=== PATIENT | female | born 1975 | race African-American/Black ===

== ENCOUNTER 2019-09-30 18:55 | Emergency (ER) | payer OTHER ==
[2019-09-30 19:13] VITALS: TEMP 98.7; BMI 34.4
--- NOTE | 2019-09-30 19:51 | PDOC ---
History of Present Illness - General Chief Complaint: Chest Pain Stated Complaint: CHEST PAIN Time Seen by Provider: 09/30/19 19:37 Past History - Medical History Allergies/Adverse Reactions: Allergies Allergy/AdvReac Type Severity Reaction Status Date / Time No Known Allergies Allergy Verified 09/30/19 19:12 COPD: No - Surgical History Appendectomy: Yes - Reproductive History Is Patient Now?: No - Psycho-Social/Smoking History Smoking History: Never smoked - Substance Abuse Hx (Audit-C & DAST Scrn) How often the patient has a drink containing alcohol: Never Score: In Men: 4 or > Positive; In Women: 3 or > Positive: 0 Screen Result (Pos requires Nsg. Audit-10AR): Negative *Physical Exam - Vital Signs Last Vital Signs Temp Pulse Resp BP Pulse Ox 98.7 F 62 20 113/58 L 98 09/30/19 19:08 09/30/19 19:08 09/30/19 19:08 09/30/19 19:08 09/30/19 19:08 Heart Score/ECG Review - History History: Slightly suspicious - Electrocardiogram EKG: Normal - Age Age: </= 45 - Risk Factors Risk Factors Heart Score: Yes Hx Obesity Based on the list above the patient has:: 1-2 risk factors - Troponin Troponin: </= normal limit - Score Heart Score - Total: 1 ED Treatment Course - LABORATORY CBC & Chemistry Diagram: 09/30/19 20:23 09/30/19 20:23 Medical Decision Making - Medical Decision Making 09/30/19 20:45 HPI: 43yo F hx stress, anxiety, and obesity presents from home c/o 3 weeks intermittent L-sided under breast nonradiating chest pains no triggers nonexertional 1-10x per day last 1-20 min resolve on own no pain meds tried intermittently associated with lightheadedness only. Hx similar sx years ago due to stress and anxiety. Endorses increased stress recently. COVID + in April. Last pain 1hr prior to arrival, asymptomatic now. Denies F/C, diaphoresis, cough, SOB, URI-like sx, palpitations, N/V, syncope, hx DVT/PE, OCP or estrogen use, calf pain or swelling, travel, sick contacts. ROS: Constitutional: Negative for chills, fever, fatigue, diaphoresis. HENT: Negative for sore throat, rhinorrhea, congestion. Eyes: Negative for visual disturbance. Respiratory: Negative for shortness of breath, cough, and wheezing. Cardiovascular: Positive for chest pain. Negative for palpitations, and leg swelling. Gastrointestinal: Negative for abdominal pain, blood in stool, constipation, diarrhea, nausea, and vomiting. Genitourinary: Negative for dysuria, flank pain, and hematuria. Musculoskeletal: Negative for myalgias, back pain, and neck pain. Skin: Negative for rash. Neurological: Positive for light-headedness. Negative for vertigo, syncope, weakness, numbness and headaches. Psychiatric/Behavioral: Positive for anxiety. Negative for confusion. PE: Gen: Alert, NAD, comfortable-appearing. HEENT: PERRL, EOMI, MMM, NCAT. No conjunctival pallor. Sclera are non-icteric. CV: Regular rate and rhythm. No murmurs, rubs, or gallops. PULM: No resp distress. CTAB, no wheezes, rales, or rhonchi. ABD: soft, NT/ND, no rebound tenderness or guarding, no CVA tenderness. BACK: No TTP of c/t/l-spine. No step-offs or deformities. MSK: No bony deformities. 2+ pulses in all extremities. NEURO: AAOx3. PERRL. No gross CN deficits. Strength and sensation grossly intact throughout. EXTREMITIES: No cyanosis. No clubbing. No edema. No calf tenderness. PSYCH: Normal mood and thought pattern. SKIN: Warm and dry. Normal capillary refill. No rashes. No jaundice. MDM: 43yo F hx stress, anxiety, and obesity presents from home c/o 3 weeks intermittent L-sided under breast nonradiating chest pains no triggers nonexertional 1-10x per day last 1-20 min resolve on own no pain meds tried intermittently associated with lightheadedness only. Hemodynamically stable, afebrile, benign exam. Ddx: presentation most c/w anxiety. Low concern for emergent pulmonary or cardiac pathology due to nonexertional nature, timing, and benign exam, obtain labs/CXR/EKG to r/o ACS/ND (HEART score 1), arrhythmia, PNA, COPD, PTX. Also consider , metabolic derangement, anemia. -CBC,CMP,Cardiac profile,UPreg -CXR -EKG -Dispo: pending w/u and reassessment, likely d/c home 09/30/19 20:52 EKG reviewed: normal sinus rhythm, 63bpm, normal axis, normal intervals, no e/o acute ischemia 09/30/19 21:56 Labs reviewed. No concerning findings. CXR reviewed: No acute pathology 09/30/19 23:38 2nd trop negative Pt asymptomatic since arrival. Very low concern for emergent pathology. Most likely anxiety. Will discharge home with cardiology f/u. Return precautions given. Pt understands all discharge instructions and all questions were answered. Discharge - Discharge Information Problems reviewed: Yes Clinical Impression/Diagnosis: Chest pain Qualifiers: Chest pain type: unspecified Qualified Code(s): R07.9 - Chest pain, unspecified Condition: Stable Disposition: HOME - Admission No - Follow up/Referral Referrals: Kenroy Holley MD [Staff Physician] - Sam Fairbanks MD [Staff Physician] - Lev Payne MD [Staff Physician] - Emilio Camarillo MD [Staff Physician] - Kishan Zamora MD [Staff Physician] - - Patient Discharge Instructions Patient Printed Discharge Instructions: DI for Atypical Chest Pain, DI for Anxiety -- Adult Additional Instructions: You have been seen in the Emergency Department for your chest pain. Your EKG, chest X-ray, and labs, including Troponin (a heart enzyme), show no signs concerning for an emergent condition such as a heart attack or pneumonia. Your symptoms are most likely due to stress and anxiety, but we have given you referrals to multiple cardiologists (heart doctors) for further evaluation. Call one of their offices to make a follow-up appointment. Follow-up with your primary care doctor within 1 week. Return to the Emergency Department immediately if you experience chest pain, difficulty breathing, passing out, or any other new or worsening symptom. - Post Discharge Activity
[2019-09-30 20:38] LABS: EOS % 1.5 % (0-4.5); HEMATOCRIT 34.6 % (32.4-45.2); HEMOGLOBIN 11.7 GM/dL (10.7-15.3); LYMPH % 23.8 % (8-40); MCH 29.1 pg (25.7-33.7); MCHC 33.7 g/dl (32.0-36.0); MEAN CELL VOLUME 86.3 fl (80-96); MEAN PLT VOLUME 8.9 fl (7.5-11.1); NEUT % 69.7 % (42.8-82.8); PLATELET COUNT 355 K/MM3 (134-434); RBC 4.01 M/mm3 (3.60-5.2); RDW 14.4 % (11.6-15.6); WHITE BLOOD COUNT 10.3 K/mm3 (4.0-10.0)
[2019-09-30 21:03] LABS: ALBUMIN 3.6 g/dl (3.4-5.0); ALK PHOS 83 U/L (45-117); ANION GAP 6 MMOL/L (8-16); BILIRUBIN,TOTAL 0.4 mg/dL (0.2-1); CALCIUM 9.4 mg/dL (8.5-10.1); CHLORIDE 107 mmol/L (98-107); CO2 26 mmol/L (21-32); CREATININE 0.7 mg/dL (0.55-1.3); GLUCOSE,RANDOM 95 mg/dL (74-106); LIPASE 62 U/L (73-393); POTASSIUM 3.6 mmol/L (3.5-5.1); SGOT/AST 18 U/L (15-37); SGPT/ALT 28 U/L (13-61); SODIUM 139 mmol/L (136-145); TOT PROT 7.2 g/dl (6.4-8.2)
--- NOTE | 2019-09-30 21:49 | PDOC ---
Documentation entered by Zara Alvarez SCRIBE, acting as scribe for Juan Hurst MD. Juan Hurst MD: This documentation has been prepared by the scribeAntonio Sydney, SCRIBE, under my direction and personally reviewed by me in its entirety. I confirm that the documentation accurately reflects all work, treatment, procedures, and medical decision making performed by me. Attending Attestation - Resident Resident Name: KeatonCarlene - ED Attending Attestation I have performed the following: I have examined & evaluated the patient, The case was reviewed & discussed with the resident, I agree w/resident's findings & plan, Exceptions are as noted - HPI HPI: 09/30/19 21:24 Patient is a 43 year old female with no significant past medical history who presents to the ED with three weeks of intermittent chest pain. As per patient, her sharp pain is localized in LUQ and lasts for a few minutes at a time. Patient endorses her pain returned this afternoon at her granddaughters birthday green party, where she also felt lightheaded, prompting her arrival to the ED. Patient reports her last episode of pain occurred an hour and a half prior to her arrival. Patient states she has been under stress secondary to her job and family issues, and notes she has been hospitalized for similar symptoms due to stress in the past. Denies headache, fever, chills, shortness of breath, bowers, nausea, vomiting, diarrhea, or urinary changes. Allergies: NKDA Family Hx: Mother had first MS at age 36, and another one 4 years ago - Physicial Exam PE: 09/30/19 21:16 GENERAL: The patient is awake, alert, and fully oriented, Nontoxic - in no acute distress. HEAD: Normocephalic, atraumatic. EYES: extraocular movements intact, sclera anicteric, conjunctiva clear. ENT: Normal voice, Moist mucous membranes. NECK: Normal range of motion, supple LUNGS: Breath sounds equal, clear to auscultation bilaterally. No wheezes, no rhonchi, no rales. HEART: Regular rate and rhythm, normal S1 and S2 without murmur, rub or gallop. ABDOMEN: Soft, nontender, No guarding, no rebound. No CVA tenderness EXTREMITIES: Normal range of motion, no edema. NEUROLOGICAL: No facial assymetry, Normal speech, PSYCH: Normal mood, normal affect. SKIN: Warm, Dry, normal turgor, - Medical Decision Making 09/30/19 21:16 43y F presenting with intermitent episodes of chest pain that is sharp in nature, in the left chest, non radiating without associated sob, bowers, diaphoresis, usually stops spontanoeusly, and are non exertional. Pt had a stress test approx 18 months ago in [place]. conider possible acs, on rashs Pt currently pain free. will obtain trops x 2, ekg, cxr will refer to cardiology if workup negative 09/30/19 23:59 trops neg x 2 will dc pt with cardiology fu pt feeling better return precautions wre discussed I discussed the physical exam findings, ancillary test results and final diagnoses with the patient. I answered all of the patient's questions. The patient was satisfied with the care received and felt comfortable with the discharge plan and treatment plan. The patient will call their primary care physician within 24 hours to arrange follow-up and will return to the Emergency Department with any new, persistent or worsening symptoms. Heart Score/ECG Review - ECG Impressions Comment:: 09/30/19 21:24 Twelve-lead EKG was performed and reviewed by me. There is normal sinus rhythm with a normal rate. ate of 63 The axis is normal. The intervals are normal. There is normal R wave progression There are no ST or T wave abnormalities. Impression: Normal twelve-lead EKG Discharge - Discharge Information Problems reviewed: Yes Clinical Impression/Diagnosis: Chest pain Qualifiers: Chest pain type: unspecified Qualified Code(s): R07.9 - Chest pain, unspecified Condition: Stable Disposition: HOME - Admission No - Follow up/Referral Referrals: Kenroy Holley MD [Staff Physician] - Sam Fairbanks MD [Staff Physician] - Lev Payne MD [Staff Physician] - Emilio Camarillo MD [Staff Physician] - Kishan Zamora MD [Staff Physician] - - Patient Discharge Instructions Patient Printed Discharge Instructions: DI for Atypical Chest Pain, DI for Anxiety -- Adult Additional Instructions: You have been seen in the Emergency Department for your chest pain. Your EKG, chest X-ray, and labs, including Troponin (a heart enzyme), show no signs concerning for an emergent condition such as a heart attack or pneumonia. Your symptoms are most likely due to stress and anxiety, but we have given you referrals to multiple cardiologists (heart doctors) for further evaluation. Call one of their offices to make a follow-up appointment. Follow-up with your primary care doctor within 1 week. Return to the Emergency Department immediately if you experience chest pain, difficulty breathing, passing out, or any other new or worsening symptom. - Post Discharge Activity
[2019-09-30 22:57] VITALS: BP 111/67; PULSE 58
--- NOTE | 2019-10-01 08:53 | EKG ---
Test Reason : Blood Pressure : / mmHG Vent. Rate : 063 BPM Atrial Rate : 063 BPM P-R Int : 178 ms QRS Dur : 086 ms QT Int : 402 ms P-R-T Axes : 027 019 012 degrees QTc Int : 411 ms NORMAL SINUS RHYTHM NORMAL ECG NO PREVIOUS ECGS AVAILABLE Confirmed by Elaine Thompson ([id number]) on 10/01/2019 8:53:38 AM Referred By: Confirmed By:Elaine Thompson
== END 2019-09-30 23:49 | disposition home or self-care (01) ==
LOC: JER 18:55
DX: R07.9 Chest pain, unspecified (principal); F41.9 Anxiety disorder, unspecified
CPT/HCPCS: 36415; 71046-TC-FY; 80053; 82550; 83690; 84484; 84703; 85025; 85730; 93005; 93010; 99284-25

== ENCOUNTER 2020-11-12 18:30 | Observation (INO) | payer OTHER ==
[2020-11-12] MEDS ORDERED: ASPIRIN 81 MG CHEWABLE TABLETS PO ONE (19:49)
[2020-11-12 20:40] LABS: BASO % 0.9 % (0-2.0); EOS % 3.9 % (0-4.5); HEMOGLOBIN 12.2 GM/dL (10.7-15.3); LYMPH % 42.2 % (8-40); MCH 28.7 pg (25.7-33.7); MEAN CELL VOLUME 84.4 fl (80-96); MEAN PLT VOLUME 8.1 fl (7.5-11.1); MONO % 4.4 % (3.8-10.2); NEUT % 48.6 % (42.8-82.8); PLATELET COUNT 405 10^3/uL (134-434); RBC 4.26 M/mm3 (3.60-5.2); RDW 14.6 % (11.6-15.6)
[2020-11-12 20:52] LABS: INR 1.07 (0.83-1.09); PROTHROMBIN TIME (PATIENT) 13.2 SEC (9.7-13.0)
[2020-11-12 20:54] LABS: ACTIVATED PTT 37.5 SECONDS (25.2-36.5)
[2020-11-12 20:59] LABS: CHLORIDE 108 mmol/L (98-107); SODIUM 140 mmol/L (136-145)
[2020-11-12 21:01] LABS: ALBUMIN 3.7 g/dl (3.4-5.0); ANION GAP 7 MMOL/L (8-16); BLOOD UREA NITROGEN 9.7 mg/dL (7-18); CALCIUM 9.3 mg/dL (8.5-10.1); CO2 25 mmol/L (21-32); MAGNESIUM 2.3 mg/dL (1.8-2.4)
[2020-11-12 21:02] LABS: GLUCOSE,RANDOM 90 mg/dL (74-106)
[2020-11-12 21:04] LABS: SGPT/ALT 19 U/L (13-61)
[2020-11-12 21:05] LABS: CREATININE 0.7 mg/dL (0.55-1.3); SGOT/AST 12 U/L (15-37)
[2020-11-12 21:06] LABS: BILIRUBIN,TOTAL 0.3 mg/dL (0.2-1); TOT PROT 7.4 g/dl (6.4-8.2)
[2020-11-12 21:07] LABS: ALK PHOS 122 U/L (45-117)
[2020-11-12] MEDS ORDERED: MECLIZINE HCL 25 MG TABLET (FP) PO ONE (22:59)
[2020-11-12] MEDS ORDERED: MECLIZINE HCL 25 MG TABLET (FP) ONE (23:32)
[2020-11-13] MEDS ORDERED: ALBUTEROL SO4 HFA INHALER IH PRN (03:59)
[2020-11-13 06:16] LABS: HEMATOCRIT 34.6 % (32.4-45.2); HEMOGLOBIN 11.6 GM/dL (10.7-15.3); MCH 28.7 pg (25.7-33.7); MCHC 33.7 g/dl (32.0-36.0); MEAN CELL VOLUME 85.2 fl (80-96); MEAN PLT VOLUME 8.4 fl (7.5-11.1); PLATELET COUNT 371 10^3/uL (134-434); RBC 4.06 M/mm3 (3.60-5.2); RDW 14.4 % (11.6-15.6); WHITE BLOOD COUNT 7.6 K/mm3 (4.0-10.0)
[2020-11-13 06:38] LABS: BLOOD UREA NITROGEN 9.7 mg/dL (7-18); CALCIUM 9.2 mg/dL (8.5-10.1)
[2020-11-13 06:42] LABS: CREATININE 0.7 mg/dL (0.55-1.3)
[2020-11-13] MEDS ORDERED: LACTATED RINGERS SOLUTION 1,000 ML/1,000 ML INFUS.BAG IV SCH (10:30)
[2020-11-13 21:06] VITALS: BMI 33.0
[2020-11-14 07:28] LABS: BASO % 0.8 % (0-2.0); EOS % 4.2 % (0-4.5); HEMATOCRIT 34.8 % (32.4-45.2); HEMOGLOBIN 11.6 GM/dL (10.7-15.3); LYMPH % 36.6 % (8-40); MCH 28.1 pg (25.7-33.7); MCHC 33.4 g/dl (32.0-36.0); MEAN CELL VOLUME 84.4 fl (80-96); MEAN PLT VOLUME 8.5 fl (7.5-11.1); MONO % 6.1 % (3.8-10.2); NEUT % 52.3 % (42.8-82.8); PLATELET COUNT 357 10^3/uL (134-434); RBC 4.13 M/mm3 (3.60-5.2); RDW 14.3 % (11.6-15.6); WHITE BLOOD COUNT 6.1 K/mm3 (4.0-10.0)
[2020-11-14 07:56] LABS: ALBUMIN 3.1 g/dl (3.4-5.0); BLOOD UREA NITROGEN 14.1 mg/dL (7-18)
[2020-11-14 07:57] LABS: MAGNESIUM 2.1 mg/dL (1.8-2.4)
[2020-11-14 07:59] LABS: PHOSPHOROUS 3.4 mg/dL (2.5-4.9)
[2020-11-14 08:00] LABS: BILIRUBIN,TOTAL 0.3 mg/dL (0.2-1); TOT PROT 6.5 g/dl (6.4-8.2)
[2020-11-14] MEDS: MIDODRINE HCL 5 MG TABLET PO SCH ×2 (09:44→17:46)
[2020-11-14] MEDS: LACTATED RINGERS SOLUTION 1,000 ML/1,000 ML INFUS.BAG IV SCH ×2 (22:13→22:17)
[2020-11-15] MEDS: LACTATED RINGERS SOLUTION 1,000 ML/1,000 ML INFUS.BAG IV SCH (06:38)
[2020-11-15 08:04] LABS: BASO % 1.1 % (0-2.0); HEMATOCRIT 33.7 % (32.4-45.2); HEMOGLOBIN 11.4 GM/dL (10.7-15.3); LYMPH % 39.2 % (8-40); MCH 28.8 pg (25.7-33.7); MCHC 33.8 g/dl (32.0-36.0); MEAN CELL VOLUME 85.1 fl (80-96); MEAN PLT VOLUME 8.8 fl (7.5-11.1); MONO % 6.2 % (3.8-10.2); NEUT % 49.5 % (42.8-82.8); PLATELET COUNT 330 10^3/uL (134-434); RBC 3.95 M/mm3 (3.60-5.2); RDW 14.3 % (11.6-15.6); WHITE BLOOD COUNT 5.2 K/mm3 (4.0-10.0)
[2020-11-15] MEDS ORDERED: MECLIZINE HCL 25 MG TABLET (FP) PO ONE (08:08)
[2020-11-15 08:17] LABS: CALCIUM 8.8 mg/dL (8.5-10.1)
[2020-11-15 08:18] LABS: ALBUMIN 2.9 g/dl (3.4-5.0); BLOOD UREA NITROGEN 9.4 mg/dL (7-18)
[2020-11-15 08:21] LABS: CREATININE 0.6 mg/dL (0.55-1.3); PHOSPHOROUS 3.4 mg/dL (2.5-4.9)
[2020-11-15 08:22] LABS: BILIRUBIN,TOTAL 0.5 mg/dL (0.2-1); TOT PROT 6.2 g/dl (6.4-8.2)
[2020-11-15] MEDS: MIDODRINE HCL 5 MG TABLET PO SCH ×2 (09:21→18:38)
[2020-11-15] MEDS: MECLIZINE HCL 25 MG TABLET (FP) PO SCH (21:51)
[2020-11-16 07:38] LABS: BASO % 0.8 % (0-2.0); EOS % 4.2 % (0-4.5); HEMATOCRIT 35.4 % (32.4-45.2); HEMOGLOBIN 11.9 GM/dL (10.7-15.3); LYMPH % 42.5 % (8-40); MCH 28.5 pg (25.7-33.7); MCHC 33.6 g/dl (32.0-36.0); MEAN CELL VOLUME 84.9 fl (80-96); MEAN PLT VOLUME 9.1 fl (7.5-11.1); NEUT % 46.5 % (42.8-82.8); PLATELET COUNT 347 10^3/uL (134-434); RBC 4.17 M/mm3 (3.60-5.2); RDW 14.6 % (11.6-15.6)
[2020-11-16 07:58] LABS: CHLORIDE 109 mmol/L (98-107); SODIUM 141 mmol/L (136-145)
[2020-11-16 08:07] LABS: CALCIUM 8.9 mg/dL (8.5-10.1)
[2020-11-16 08:08] LABS: ALBUMIN 3.1 g/dl (3.4-5.0); ANION GAP 5 MMOL/L (8-16); BLOOD UREA NITROGEN 8.5 mg/dL (7-18); CO2 27 mmol/L (21-32); GLUCOSE,RANDOM 89 mg/dL (74-106)
[2020-11-16 08:11] LABS: CREATININE 0.7 mg/dL (0.55-1.3); SGPT/ALT 17 U/L (13-61)
[2020-11-16 08:13] LABS: BILIRUBIN,TOTAL < 0.1 mg/dL (0.2-1); TOT PROT 6.5 g/dl (6.4-8.2)
[2020-11-16 08:14] LABS: ALK PHOS 118 U/L (45-117); SGOT/AST 9 U/L (15-37)
[2020-11-16] MEDS: MIDODRINE HCL 5 MG TABLET PO SCH ×2 (10:36→18:07)
[2020-11-16] MEDS: MECLIZINE HCL 25 MG TABLET (FP) PO SCH (10:36)
[2020-11-16 17:49] VITALS: BP 124/53; PULSE 59; TEMP 98.1
== END 2020-11-16 18:55 | disposition home or self-care (01) ==
LOC: JER 18:30 → JERBED 11-13 00:09 → UNDOADMOB 11-13 00:09 → INTOOBSV 11-13 03:53 → OBSVTOIN 11-13 03:53 → J4W 11-13 20:42 → JERBED 11-13 20:42 → J4W 11-14 09:23
PROVIDERS: ADMIT Internal Medicine; ATTEND Internal Medicine
PROC: 3E0337Z Introduction of Electrolytic and Water Balance Substance into Peripheral Vein, Percutaneous Approach (ICD-10-PCS; principal; 2020-11-14)
DX: R00.1 Bradycardia, unspecified (principal); F41.9 Anxiety disorder, unspecified; G43.909 Migraine, unspecified, not intractable, without status migrainosus; B00.9 Herpesviral infection, unspecified; E66.9 Obesity, unspecified; Z68.33 Body mass index [BMI] 33.0-33.9, adult; R42 Dizziness and giddiness; J45.909 Unspecified asthma, uncomplicated; Z29.9 Encounter for prophylactic measures, unspecified
CPT/HCPCS: 36415; 70450-TC; 71046-TC-FY; 80048; 80053; 82550; 83735; 84100; 84443; 84484; 85025; 85027; 85610; 85730; 93005; 93010; 93306-TC; 96360; 96361; 97116-GP; 97162-GP; 99285-25; C9803; G0378; U0003; U0005

== ENCOUNTER 2022-06-10 19:24 | Emergency (ER) | payer BC, OTHER ==
[2022-06-10 19:35] VITALS: BP 107/41; PULSE 60; RESP 20; TEMP 98.1; BMI 33.2
[2022-06-10] MEDS ORDERED: KETOROLAC TROMETHAMINE 30 MG/1 ML VIAL IM ONE (19:58)
[2022-06-10] MEDS ORDERED: CYCLOBENZAPRINE HCL 10 MG TABLET (FP) PO ONE (19:59)
[2022-06-10] MEDS ORDERED: CYCLOBENZAPRINE HCL 10 MG TABLET (FP) ONE (20:00)
[2022-06-10] MEDS ORDERED: KETOROLAC TROMETHAMINE 30 MG/1 ML VIAL ONE (20:00)
[2022-06-10] MEDS ORDERED: LIDOCAINE 5% TOPICAL PATCH TP ONE (20:05)
[2022-06-10] MEDS ORDERED: LIDOCAINE 5% TOPICAL PATCH ONE (20:06)
[2022-06-11] MEDS ORDERED: LIDOCAINE PATCH REMOVAL MC SCH (08:00)
== END 2022-06-10 20:40 | disposition home or self-care (01) ==
LOC: JERFT 19:24
PROC: 3E0233Z Introduction of Anti-inflammatory into Muscle, Percutaneous Approach (ICD-10-PCS; principal; 2022-06-10)
DX: M54.18 Radiculopathy, sacral and sacrococcygeal region (principal)
CPT/HCPCS: 72100-TC-FY; 72170-TC-FY; 99284-25

== ENCOUNTER 2024-03-02 13:26 | Emergency (ER) | payer OTHER, BC ==
[2024-03-02 14:08] VITALS: BP 136/59; PULSE 62; RESP 18; TEMP 98; BMI 33.6
[2024-03-02] MEDS ORDERED: IBUPROFEN 400 MG TABLET (FP) PO ONE (14:50)
[2024-03-02] MEDS ORDERED: LIDOCAINE 5% TOPICAL PATCH ONE (14:52)
[2024-03-02] MEDS: LIDOCAINE 5% TOPICAL PATCH TP ONE (14:54)
[2024-03-02] MEDS: IBUPROFEN 400 MG TABLET (FP) PO ONE (14:55)
[2024-03-02] MEDS ORDERED: LIDOCAINE PATCH REMOVAL MC ONE (22:00)
== END 2024-03-02 18:12 | disposition home or self-care (01) ==
LOC: JER 13:26 → JERFT 13:26
DX: S46.811A Strain of other muscles, fascia and tendons at shoulder and upper arm level, right arm, initial encounter (principal); M54.50 Low back pain, unspecified; M25.551 Pain in right hip; V49.40XA Driver injured in collision with unspecified motor vehicles in traffic accident, initial encounter
CPT/HCPCS: 72100-TC-FY; 73030-TC-RT-FY; 73060-TC-RT-FY; 73502-TC-RT-FY; 99284-25